=== PATIENT | male | born 1980 | race Caucasian/White ===

== ENCOUNTER 2017-01-10 19:45 | Emergency (ER) | payer OTHER ==
[~2017-01-10] VITALS: Ht 160 cm; Wt 124.1 kg
[~2017-01-10 19:45] MED LIST: NAPROXEN500 MG PO
[2017-01-10 20:06] VITALS: BP 143/85
== END 2017-01-10 23:02 | disposition home or self-care (01) ==
LOC: EME 19:45
PROC: 3E0234Z Introduction of Serum, Toxoid and Vaccine into Muscle, Percutaneous Approach (ICD-10-PCS; principal; 2017-01-10)
DX: S60.413A Abrasion of left middle finger, initial encounter (principal); W23.0XXA Caught, crushed, jammed, or pinched between moving objects, initial encounter; Z23 Encounter for immunization
CPT/HCPCS: 73130; 99281; 99284

== ENCOUNTER 2017-07-08 04:40 | Emergency (ER) | payer OTHER, BC ==
[~2017-07-08] VITALS: Ht 170.2 cm; Wt 123.7 kg
[2017-07-08] MEDS ORDERED: ULTRAM50 MG PO (05:46)
[2017-07-08 05:57] VITALS: BP 138/86
== END 2017-07-08 05:58 | disposition home or self-care (01) ==
LOC: EME 04:40
DX: S20.212A Contusion of left front wall of thorax, initial encounter (principal); W18.30XA Fall on same level, unspecified, initial encounter; Y99.0 Civilian activity done for income or pay
CPT/HCPCS: 71020; 99281; 99283

== ENCOUNTER 2017-07-14 22:36 | Emergency (ER) | payer OTHER, BC ==
[~2017-07-14] VITALS: Ht 170.2 cm; Wt 124.3 kg
[~2017-07-14 22:36] MED LIST changes: +ULTRAM50 MG PO
[2017-07-15] MEDS ORDERED: NORCO 5/3251 TABLET PO (01:46)
[2017-07-15] MEDS ORDERED: MOTRIN600 MG PO (01:47)
[2017-07-15 02:01] VITALS: BP 130/80
== END 2017-07-15 02:01 | disposition home or self-care (01) ==
LOC: RME 22:36 → EME 22:36 → RME 07-15 02:01
DX: S22.32XA Fracture of one rib, left side, initial encounter for closed fracture (principal); W19.XXXD Unspecified fall, subsequent encounter; Y99.0 Civilian activity done for income or pay
CPT/HCPCS: 71250; J1885